=== PATIENT | female | born 1970 | race African-American/Black ===

== ENCOUNTER → 2019-06-23 | Day surgery (SDC) | payer MEDICAID ==
[2019-06-21 15:06] LABS: Basophils # (auto) 0 uL; Eosinophils # (auto) 0.1 uL; Hemoglobin 14.1 g/dL (12.2-16.2); Monocytes # (auto) 0.4 uL; Neutrophils # (auto) 1.7 uL; White Blood Cell 3.6 10^3/uL (4.4-10.8)
[2019-06-21 15:08] LABS: Basophils % (auto) 0.9 % (0.0-2.0); Hematocrit 42.9 % (36.0-46.0); Lymphocytes # (auto) 1.4 uL; Lymphocytes % (auto) 39.5 % (10.0-50.0); Mean Corpuscular Hemoglobin 26.3 pg (28.0-32.0); Mean Corpuscular Hgb Conc. 32.7 g/dL (32.0-36.0); Mean Corpuscular Volume 80.3 fL (80.0-100.0); Monocytes % (auto) 11.1 % (0.0-12.0); Neutrophils % (auto) 46.5 % (37.0-80.0); Nucleated Red Blood Cells % 0.1 %; Platelet Count (auto) 298 10^3/uL (140-450); Red Blood Cells 5.34 10^6/uL (4.0-5.20); Red Cell Distribution Width 14.1 % (11.8-14.3)
[2019-06-21 15:19] LABS: Urine Bacteria FEW /hpf (None Seen); Urine Blood Negative /uL (Negative); Urine Hyaline Cast FEW /lpf (0 - 2); Urine WBC 1 /hpf (0 - 5)
[2019-06-21 15:24] LABS: Albumin 3.5 g/dL (3.4-5.0); Calcium 8.7 mg/dL (8.5-10.1); INR 1.05 (0.9-1.15); Partial Thromboplastin Time 26.3 sec (23.64-32.05); Potassium 3.7 mmol/L (3.5-5.1)
[2019-06-21 15:27] LABS: BUN/Creatinine Ratio 14.7; Bilirubin, Total 0.2 mg/dL (0.2-1.0); Total Protein 7.9 g/dL (6.4-8.2)
[~2019-06-23] VITALS: Ht 170.2 cm; Wt 121.1 kg
[~2019-06-23] MED LIST: ALBUAER3 IN; ATOR20TA50 PO; AZAT50TA22 PO; CLINDAMYCIN 600MG IV 50 ML IV ONE; CODCAP28 PO; GLIP5TAB12 PO; GLYCOPYRROLATE 0.2 MG/ML 1ML VIAL IV ONE; HYDR-3682 PO; METF-370 PO; ONDANSETRON HCL 4 MG/2 ML VIAL IV PRN; PANT40TA2 PO; PROPOFOL 10 MG/ML 20 ML IV ONE; ROCURONIUM 10MG/ML 10ML VIAL IV ONE; ROPIVACAINE 0.5% (5MG/ML) 20ML AMPULE IJ ONE; ePHEDrine SULFATE 50 MG/ML AMP IV PRN; fentaNYL CITRATE 100 MCG/2 ML VL IV PRN; fentaNYL CITRATE 100 MCG/2 ML VL ONE; hydrALAZINE HCL 20 MG/ML VL IV PRN; methylPREDNISolone ACETATE 80 MG/ML VL ONE
[2019-06-23 19:40] VITALS: BP 129/78
== END | disposition home or self-care (01) ==
LOC: SUR 10:19
PROVIDERS: ATTEND Podiatrist Foot & Ankle Surgery
DX: M25.371 Other instability, right ankle (principal); S93.491A Sprain of other ligament of right ankle, initial encounter; J45.909 Unspecified asthma, uncomplicated; E11.9 Type 2 diabetes mellitus without complications; E66.01 Morbid (severe) obesity due to excess calories; K21.9 Gastro-esophageal reflux disease without esophagitis; Z68.41 Body mass index [BMI] 40.0-44.9, adult; R56.9 Unspecified convulsions; Z98.891 History of uterine scar from previous surgery; Z79.899 Other long term (current) drug therapy; Z88.0 Allergy status to penicillin; Z79.84 Long term (current) use of oral hypoglycemic drugs; X58.XXXA Exposure to other specified factors, initial encounter; Y93.89 Activity, other specified; Y92.89 Other specified places as the place of occurrence of the external cause; Y99.8 Other external cause status
CPT/HCPCS: 27698; 36415; 80053; 81001; 82962; 84702; 85025; 85610; 85730; J1040; J2704; J2795; J3010; J3490

== ENCOUNTER 2019-11-07 08:06 | Day surgery (SDC) | payer MEDICAID ==
[~2019-11-07 08:06] MED LIST changes: -CLINDAMYCIN 600MG IV 50 ML IV ONE; -GLYCOPYRROLATE 0.2 MG/ML 1ML VIAL IV ONE; -ONDANSETRON HCL 4 MG/2 ML VIAL IV PRN; -PROPOFOL 10 MG/ML 20 ML IV ONE; -ROCURONIUM 10MG/ML 10ML VIAL IV ONE; -ROPIVACAINE 0.5% (5MG/ML) 20ML AMPULE IJ ONE; -ePHEDrine SULFATE 50 MG/ML AMP IV PRN; -fentaNYL CITRATE 100 MCG/2 ML VL IV PRN; -fentaNYL CITRATE 100 MCG/2 ML VL ONE; -hydrALAZINE HCL 20 MG/ML VL IV PRN; -methylPREDNISolone ACETATE 80 MG/ML VL ONE
[2019-11-07 09:23] LABS: Basophils # (auto) 0 10 ^3/uL (0-0.2); Eosinophils # (auto) 0.1 10 ^3/uL (0-0.8); Monocytes # (auto) 0.3 10 ^3/uL (0-1.3); Monocytes % (auto) 8.1 % (0.0-12.0); Neutrophils # (auto) 1.5 10 ^3/uL (1.6-8.6); Nucleated Red Blood Cells % 0.1 %; White Blood Cell 3.3 10^3/uL (4.4-10.8)
[2019-11-07 09:25] LABS: Eosinophils % (auto) 1.7 % (0.0-7.0); Hematocrit 43.3 % (36.0-46.0); Hemoglobin 14.2 g/dL (12.2-16.2); Lymphocytes # (auto) 1.5 10 ^3/uL (0.4-5.4); Mean Corpuscular Hemoglobin 26.1 pg (28.0-32.0); Mean Corpuscular Hgb Conc. 32.7 g/dL (32.0-36.0); Mean Corpuscular Volume 79.9 fL (80.0-100.0); Neutrophils % (auto) 45.2 % (37.0-80.0); Platelet Count (auto) 229 10^3/uL (140-450); Red Blood Cells 5.42 10^6/uL (4.0-5.20); Red Cell Distribution Width 13.9 % (11.8-14.3)
[2019-11-07 09:37] LABS: INR 1.07 (0.9-1.15); Partial Thromboplastin Time 26.1 sec (23.64-32.05)
[2019-11-07] MEDS ORDERED: CLINDAMYCIN 600MG IV 50 ML IV ONE (09:40)
[2019-11-07 09:43] LABS: BUN/Creatinine Ratio 12.5; Calcium 8.4 mg/dL (8.5-10.1); Potassium 3.5 mmol/L (3.5-5.1)
[2019-11-07] MEDS ORDERED: PROPOFOL 10 MG/ML 20 ML IV ONE (10:07)
[2019-11-07] MEDS ORDERED: MIDAZOLAM HCL 1MG/1ML-2 ML VIAL ONE (10:07)
[2019-11-07] MEDS ORDERED: SODIUM CHLORIDE LOCK 10 ML ONE (10:07)
[2019-11-07] MEDS ORDERED: fentaNYL CITRATE 100 MCG/2 ML VL ONE (10:07)
[2019-11-07] MEDS ORDERED: ONDANSETRON HCL 4 MG/2 ML VIAL ONE (10:07)
[2019-11-07] MEDS ORDERED: MORPHINE SULFATE 4 MG/ML SYR/VIAL IV PRN (10:30)
[2019-11-07] MEDS ORDERED: fentaNYL CITRATE 100 MCG/2 ML VL IV PRN (10:30)
[2019-11-07] MEDS ORDERED: ACCU-CHEK COMFORT CURVE STRIP VI ONE (10:30)
[2019-11-07] MEDS ORDERED: HYDROmorphone HCL 2 MG/ML VL IV PRN (10:30)
[2019-11-07] MEDS ORDERED: METOCLOPRAMIDE HCL 5MG/ml INJ 2ml VIAL IV PRN (10:30)
[2019-11-07] MEDS ORDERED: ROPIVACAINE 0.5% (5MG/ML) 20ML AMPULE IJ ONE (10:31)
[2019-11-07 12:10] VITALS: BP 125/68
== END 2019-11-07 12:19 | disposition home or self-care (01) ==
LOC: SUR 08:06
PROVIDERS: ATTEND Podiatrist Foot & Ankle Surgery
DX: M20.11 Hallux valgus (acquired), right foot (principal); M21.611 Bunion of right foot; E66.01 Morbid (severe) obesity due to excess calories; J45.909 Unspecified asthma, uncomplicated; E11.42 Type 2 diabetes mellitus with diabetic polyneuropathy; Z68.41 Body mass index [BMI] 40.0-44.9, adult; Z98.890 Other specified postprocedural states; Z88.0 Allergy status to penicillin; Z79.899 Other long term (current) drug therapy
CPT/HCPCS: 28296; 36415; 71045; 73620; 80048; 82962; 85025; 85610; 85730; C1713; C1769; J2250; J2405; J2704; J2765; J2795; J3010; J3490; L3260